=== PATIENT | male | born 1970 | race Caucasian/White ===

== ENCOUNTER 2020-09-10 13:16 | Emergency (ER) | payer BC, SELFPAY ==
[2020-09-10 13:25] VITALS: BP 148/70; PULSE 72; RESP 16; TEMP 36.4; O2SAT 96
--- NOTE | 2020-09-10 13:43 | ED.BACK ---
HPI - Back Pain/Injury General Chief Complaint: Back Pain/Injury Stated Complaint: lower back right side pain Time Seen by Provider: 09/10/20 13:44 Mode of arrival: ambulatory Limitations: no limitations History of Present Illness HPI Narrative: PATIENT PRESENTS WITH RIGHT FLANK PAIN. NO RADIATION OF PAIN. PATIENT STATES NO HISORY OF KIDNEY STONES DOES HAVE SOME BURNIG WITH URINATION THAT STARTED TODAY. MD elicited complaint: other (FLANK PAIN) Pertinent past history: prior back pain Onset (ago): day(s) (THREE) Timing: intermittent Severity: mild Similar Symptoms Previously: Yes Quality: stabbing Location: right flank Radiation: none Exacerbating factors: movement Relieving factors: sitting upright Context: unknown Associated symptoms: denies other symptoms Related Data Home Medications Medication Instructions Recorded Confirmed atorvastatin 40 mg PO DAILY 09/10/20 09/10/20 empagliflozin [Jardiance] 25 mg PO DAILY 09/10/20 09/10/20 olmesartan-hydrochlorothiazide 1 tablet PO DAILY 09/10/20 09/10/20 semaglutide [Ozempic] 1 mg SUBCUT WEEKLY 09/10/20 09/10/20 Allergies Allergy/AdvReac Type Severity Reaction Status Date / Time No Known Allergies Allergy Unverified 09/10/20 13:54 Review of Systems Review of Systems: Narrative: CONSTITUTIONAL: Denies fever, chills, or sweats. EYES: Denies visual changes, redness, or discharge. ENT: Denies rhinorrhea, congestion, sore throat, or otalgia. CARDIOVASCULAR: Denies chest pain, palpitations, or edema. RESPIRATORY: Denies cough or dyspnea. GASTROINTESTINAL: Denies abdominal pain, nausea, vomiting, or diarrhea. GENITOURINARY: Denies dysuria or hematuria. SKIN: Denies rash or itching. MUSCULOSKELETAL: Denies back pain, joint pain, or myalgia. NEUROLOGIC: Denies headache, numbness, or weakness. PSYCHIATRIC: Denies anxiety or depression. PMFSH Comments At time of signature, agree with nursing past medical, surgical, social and family history. There is no relevant family history pertinent to the presenting complaint Exam Narrative: Exam Narrative: GENERAL: Well-appearing, well-nourished, and in no acute distress. HEAD: Normocephalic, atraumatic. EYES: PERRLA and EOMI. ENT: Nares clear, no rhinorrhea or epistaxis. Mucous membranes moist. NECK: Supple. CHEST: Clear to auscultation. No respiratory distress. HEART: Regular rate and rhythm. No murmur heard. Normal peripheral pulses. ABDOMEN: Soft, nontender, nondistended, normal active bowel sounds. EXTREMITIES: Normal range of motion. No edema. SPINE MIDLINE. NO CURVATURE APPARENT. NO NOVERTEBRAL POINT SPECIFIC TENDERNESS. NO DEFORMITY. NO STEP-OFFS. NORMAL LE STRENGTH BILATERALLY. NORMAL LE SENSATION BILATERALLY. ABLE TO WALK ON TOES AND HEELS WITH NORMAL DORSIFLEXION AND PLANTAR FLEXION STRENGTH. NO WEAKNESS OBSERVED WITH GAIT. RIGHT PARASPINAL MUSCLE TENDERNESS. RIGHT SI JOINT TENDERNESS. FLEXION AND EXTENSION ROM NORMAL, ONLY SLIGHT LIMITATION. SKIN: Warm, dry, no rash. NEURO: No focal deficits. Alert and oriented x3. [place] Coma Scale Eye Opening: Spontaneous 4 Umm Coma Scale Motor: Obeys Commands 6 Umm Coma Scale Verbal: Oriented 5 [place] Coma Scale Total 15 Course Vital Signs Vital signs: Vital Signs Temperature 36.4 C 09/10/20 13:25 Pulse Rate 72 09/10/20 13:25 Respiratory Rate 16 09/10/20 13:25 Blood Pressure 148/70 H 09/10/20 13:25 Pulse Oximetry 96 09/10/20 13:25 Temperature 36.4 C 09/10/20 13:25 Pulse Rate 72 09/10/20 13:25 Respiratory Rate 16 09/10/20 13:25 Blood Pressure 148/70 H 09/10/20 13:25 Pulse Oximetry 96 09/10/20 13:25 Please CHRISTIANO schedule a followup visit with your personal physician for further evaluation and treatment. Including recheck and discussion of your blood pressure. If your symptoms persist, change or worsen significantly before you can contact your personal physician then please, without delay, go to the emergency department for further evalua
[2020-09-10] MEDS: KETOROLAC (*BKC) 60 MG/2 ML VIAL 30 MG IM (13:48)
== END 2020-09-10 14:25 | disposition home or self-care (01) ==
PROVIDERS: Emergency Provider Nurse Practitioner Family
DX: R10.9 Unspecified abdominal pain (principal); N20.0 Calculus of kidney; E78.00 Pure hypercholesterolemia, unspecified; I10 Essential (primary) hypertension; E11.9 Type 2 diabetes mellitus without complications
CPT/HCPCS: 81003; 87086; 96372; 99203; G0463; J1885